=== PATIENT | female | born 1940 | race African-American/Black ===

== ENCOUNTER 2017-11-06 10:13 | Inpatient (IN) | payer MEDICARE, BC ==
[~2017-11-06] VITALS: Ht 165.1 cm; Wt 87.1 kg
[2017-11-06] MEDS ORDERED: ADENOSINE 3 MG/ML 2ML VIAL IV ONE ×3 (10:30→10:37)
[2017-11-06 11:16] LABS: BASOPHILS % 0.2 % (0.0-2.0); EOSINOPHILS % 0.2 % (0.0-5.0); HEMATOCRIT. 38.2 % (36.0-48.0); HEMOGLOBIN. 12.2 g/dL (12.0-16.0); LYMPHOCYTES % 14.5 % (20.0-50.0); MEAN CORPUSCULAR HEMOGLOBIN 27.1 pg (28.0-32.0); MEAN CORPUSCULAR VOLUME 84.7 fL (81.0-99.0); MEAN PLATELET VOLUME 8.5 fl (7.4-10.4); MONOCYTES % 8.2 % (2.0-8.0); NEUTROPHILS % 76.9 % (40.0-76.0); PLATELET 262 x1000/uL (130-400); RED BLOOD CELL COUNT 4.52 mill/uL (4.2-5.4); RED CELL DISTRIBUTION WIDTH 14.7 % (11.6-14.6)
[2017-11-06 11:19] LABS: CHLORIDE 100 mEq/L (98-107); INR 1.3; PROTHROMBIN TIME 13.7 sec (9.4-11.6)
[2017-11-06] MEDS ORDERED: SODIUM CHLORIDE 0.9% 1,000 ML IV ONE (11:21)
[2017-11-06] MEDS ORDERED: VANCOMYCIN 1 G PREMIX 200 ML IV ONE (11:45)
[2017-11-06] MEDS ORDERED: SODIUM CHLORIDE 0.9% 1000ML BAG (SEPSIS BOLUS) IV ONE (11:45)
[2017-11-06] MEDS ORDERED: PIPERACILLIN/TAZ 3.375G PREMIX 50 ML IV ONE (11:45)
[2017-11-06 12:27] LABS: CLARITY URINE CLOUDY (CLEAR); COLOR URINE DARK YELLOW (YELLOW); KETONES URINE NEGATIVE (NEGATIVE); LEUKOCYTE ESTERASE URINE TRACE (NEGATIVE); NITRITE URINE NEGATIVE (NEGATIVE); OCCULT BLOOD URINE 2+ (NEGATIVE); PROTEIN URINE 1+ (NEGATIVE); SPECIFIC GRAVITY URINE 1.021 (1.005-1.030)
[2017-11-06] MEDS ORDERED: POTASSIUM CHLORIDE 20MEQ TABLET SR PO NR (14:30)
[2017-11-06 16:00] VITALS: BP 99/67
[2017-11-06] MEDS ORDERED: CLONIDINE 0.1MG TABLET PO PRN (16:00)
[2017-11-06] MEDS ORDERED: CLOPIDOGREL 75MG TABLET PO SCH (16:00)
[2017-11-06] MEDS: METOPROLOL TARTRATE 25MG TABLET PO SCH (16:00)
[2017-11-06] MEDS ORDERED: ASPIRIN 81MG EC TABLET PO SCH (16:00)
[2017-11-06] MEDS ORDERED: ASPI-1159 MT (17:07)
[2017-11-06] MEDS ORDERED: POTA8TAB4 MT (17:07)
[2017-11-06] MEDS ORDERED: FERR325T6 MT (17:07)
[2017-11-06 17:13] VITALS: BP 99/67
[2017-11-06] MEDS ORDERED: ENOXAPARIN 30MG/0.3ML SYR SUBCUT SCH (18:00)
[2017-11-06] MEDS: DEXT 5%/0.45% NACL 1000ML 1,000 ML IV SCH (18:15)
[2017-11-06 18:27] LABS: CLARITY URINE CLOUDY (CLEAR); COLOR URINE DARK YELLOW (YELLOW); KETONES URINE NEGATIVE (NEGATIVE); LEUKOCYTE ESTERASE URINE NEGATIVE (NEGATIVE); NITRITE URINE NEGATIVE (NEGATIVE); OCCULT BLOOD URINE 2+ (NEGATIVE); PROTEIN URINE TRACE (NEGATIVE); SPECIFIC GRAVITY URINE 1.021 (1.005-1.030)
[2017-11-06] MEDS: GUAIFENESIN 200MG TABLET PO SCH (18:30)
[2017-11-06] MEDS: FERROUS SULFATE 325MG TABLET PO SCH (18:30)
[2017-11-06 18:47] LABS: *BARBITURATES SCREEN URINE NEGATIVE (NEGATIVE)
[2017-11-06 18:48] LABS: *AMPHETAMINES SCREEN URINE NEGATIVE (NEGATIVE); *BENZODIAZEPINES SCREEN URINE NEGATIVE (NEGATIVE); *COCAINE SCREEN URINE NEGATIVE (NEGATIVE); METHADONE URINE SCREEN NEGATIVE (NEGATIVE); OPIATES URINE SCREEN NEGATIVE (NEGATIVE); PHENCYCLIDINE URINE SCREEN NEGATIVE (NEGATIVE)
[2017-11-06 19:00] LABS: CANNABINOID URINE SCREEN NEGATIVE (NEGATIVE)
[2017-11-06 20:00] VITALS: BP 101/64
[2017-11-06 22:00] VITALS: BP 110/66
[2017-11-07] VITALS (12 sets, daily range): BP systolic 98–134; BP diastolic 63–82
[2017-11-07] MEDS: DEXAMETHASONE 4MG/ML 1ML VIAL IV SCH ×4 (00:52→18:11)
[2017-11-07] MEDS: METOPROLOL TARTRATE 25MG TABLET PO SCH ×3 (09:00→21:23)
[2017-11-07] MEDS: FERROUS SULFATE 325MG TABLET PO SCH ×2 (09:00→17:00)
[2017-11-07] MEDS: GUAIFENESIN 200MG TABLET PO SCH ×2 (09:00→17:00)
[2017-11-07 09:04] LABS: BASOPHILS % 0.1 % (0.0-2.0); EOSINOPHILS % 0.1 % (0.0-5.0); HEMATOCRIT. 31.6 % (36.0-48.0); HEMOGLOBIN. 10.3 g/dL (12.0-16.0); LYMPHOCYTES % 7.6 % (20.0-50.0); MEAN CORPUSCULAR HEMOGLOBIN 27.6 pg (28.0-32.0); MEAN CORPUSCULAR VOLUME 84.6 fL (81.0-99.0); MEAN PLATELET VOLUME 8.7 fl (7.4-10.4); MONOCYTES % 7.7 % (2.0-8.0); NEUTROPHILS % 84.5 % (40.0-76.0); PLATELET 187 x1000/uL (130-400); RED BLOOD CELL COUNT 3.74 mill/uL (4.2-5.4); RED CELL DISTRIBUTION WIDTH 14.6 % (11.6-14.6)
[2017-11-07 10:35] LABS: CHLORIDE 108 mEq/L (98-107)
[2017-11-07 10:46] LABS: AMMONIA 50 uMol/L (<32)
[2017-11-07 11:04] LABS: CREATINE KINASE MB FRACTION 6.3 ng/mL (0.5-3.6)
[2017-11-07] MEDS: DEXT 5%/0.45% NACL 1000ML 1,000 ML IV SCH (11:12)
[2017-11-07 11:17] LABS: CREATINE KINASE 1354 IU/L (26-192)
[2017-11-07] MEDS: ENOXAPARIN 40MG/0.4ML SYR SUBCUT SCH (18:12)
[2017-11-07] MEDS ORDERED: IPRATROPIUM/ALBUTEROL 0.5-3(2.5)MG/3ML NEB HHN PRN (21:15)
[2017-11-07] MEDS: IPRATROPIUM/ALBUTEROL 0.5-3(2.5)MG/3ML NEB HHN SCH (23:56)
[2017-11-08] VITALS (11 sets, daily range): BP systolic 109–133; BP diastolic 68–83
[2017-11-08] MEDS: DEXAMETHASONE 4MG/ML 1ML VIAL IV SCH ×4 (01:00→17:31)
[2017-11-08] MEDS: IPRATROPIUM/ALBUTEROL 0.5-3(2.5)MG/3ML NEB HHN SCH ×5 (03:57→21:47)
[2017-11-08] MEDS: DEXT 5%/0.45% NACL 1000ML 1,000 ML IV SCH ×2 (04:08→22:07)
[2017-11-08 06:30] LABS: HEMATOCRIT. 32.6 % (36.0-48.0); HEMOGLOBIN. 10.5 g/dL (12.0-16.0); LYMPHOCYTES % 12.6 % (20.0-50.0); MEAN CORPUSCULAR HEMOGLOBIN 27.2 pg (28.0-32.0); MEAN CORPUSCULAR VOLUME 85.1 fL (81.0-99.0); MEAN PLATELET VOLUME 8.6 fl (7.4-10.4); MONOCYTES % 4.6 % (2.0-8.0); NEUTROPHILS % 82.8 % (40.0-76.0); PLATELET 201 x1000/uL (130-400); RED BLOOD CELL COUNT 3.84 mill/uL (4.2-5.4); RED CELL DISTRIBUTION WIDTH 14.8 % (11.6-14.6)
[2017-11-08 06:50] LABS: CHLORIDE 108 mEq/L (98-107)
[2017-11-08] MEDS: METOPROLOL TARTRATE 25MG TABLET PO SCH ×2 (09:35→22:06)
[2017-11-08] MEDS: GUAIFENESIN 200MG TABLET PO SCH ×2 (09:36→17:31)
[2017-11-08] MEDS: FERROUS SULFATE 325MG TABLET PO SCH ×2 (09:36→17:31)
[2017-11-08] MEDS ORDERED: ASPIRIN 325MG EC TABLET PO SCH (12:00)
[2017-11-08] MEDS ORDERED: GADOBENATE DIMEGLUMINE 529 MG/ML 10ML IV ONE (12:08)
[2017-11-08] MEDS: ENOXAPARIN 40MG/0.4ML SYR SUBCUT SCH (17:32)
[2017-11-08] MEDS: ATORVASTATIN CALCIUM 10MG TABLET PO SCH (22:06)
[2017-11-09] VITALS (14 sets, daily range): BP systolic 112–135; BP diastolic 58–82
[2017-11-09] MEDS: IPRATROPIUM/ALBUTEROL 0.5-3(2.5)MG/3ML NEB HHN SCH ×6 (01:35→21:24)
[2017-11-09] MEDS: DEXAMETHASONE 4MG/ML 1ML VIAL IV SCH ×4 (06:40→18:02)
[2017-11-09 07:19] LABS: BASOPHILS % 0.1 % (0.0-2.0); HEMATOCRIT. 31.2 % (36.0-48.0); HEMOGLOBIN. 10.1 g/dL (12.0-16.0); LYMPHOCYTES % 8.6 % (20.0-50.0); MEAN CORPUSCULAR HEMOGLOBIN 27.8 pg (28.0-32.0); MEAN CORPUSCULAR VOLUME 85.7 fL (81.0-99.0); MEAN PLATELET VOLUME 8.3 fl (7.4-10.4); MONOCYTES % 10.5 % (2.0-8.0); NEUTROPHILS % 80.8 % (40.0-76.0); PLATELET 217 x1000/uL (130-400); RED BLOOD CELL COUNT 3.64 mill/uL (4.2-5.4)
[2017-11-09 07:39] LABS: CHLORIDE 111 mEq/L (98-107)
[2017-11-09] MEDS: GUAIFENESIN 200MG TABLET PO SCH ×2 (09:00→18:01)
[2017-11-09] MEDS: FERROUS SULFATE 325MG TABLET PO SCH ×2 (10:26→17:51)
[2017-11-09] MEDS: METOPROLOL TARTRATE 25MG TABLET PO SCH ×3 (10:26→21:00)
[2017-11-09] MEDS: DEXT 5%/0.45% NACL 1000ML 1,000 ML IV SCH (12:55)
[2017-11-09] MEDS ORDERED: SODIUM BICARBONATE 4% (2.4MEQ) 5ML VIAL IV ONE (13:56)
[2017-11-09] MEDS ORDERED: LIDOCAINE HCL 1% 20ML VIAL (Pyxis) INJ ONE (13:56)
[2017-11-09] MEDS: ATORVASTATIN CALCIUM 10MG TABLET PO SCH ×2 (20:28→21:00)
[2017-11-10] VITALS (16 sets, daily range): BP systolic 118–160; BP diastolic 65–84
[2017-11-10] MEDS: DEXAMETHASONE 4MG/ML 1ML VIAL IV SCH ×4 (00:22→16:09)
[2017-11-10] MEDS: ATORVASTATIN CALCIUM 10MG TABLET PO SCH ×2 (00:38→22:06)
[2017-11-10] MEDS: METOPROLOL TARTRATE 25MG TABLET PO SCH ×3 (00:39→22:07)
[2017-11-10] MEDS: IPRATROPIUM/ALBUTEROL 0.5-3(2.5)MG/3ML NEB HHN SCH ×6 (00:53→20:16)
[2017-11-10] MEDS: DEXT 5%/0.45% NACL 1000ML 1,000 ML IV SCH ×2 (05:52→22:15)
[2017-11-10] MEDS: FERROUS SULFATE 325MG TABLET PO SCH ×2 (09:18→16:09)
[2017-11-10] MEDS: GUAIFENESIN 200MG TABLET PO SCH ×2 (09:22→16:09)
[2017-11-11] VITALS (7 sets, daily range): BP systolic 115–156; BP diastolic 65–91
[2017-11-11] MEDS: IPRATROPIUM/ALBUTEROL 0.5-3(2.5)MG/3ML NEB HHN SCH ×3 (00:18→09:06)
[2017-11-11] MEDS: DEXAMETHASONE 4MG/ML 1ML VIAL IV SCH ×3 (00:57→12:00)
[2017-11-11] MEDS: GUAIFENESIN 200MG TABLET PO SCH (09:34)
[2017-11-11] MEDS: FERROUS SULFATE 325MG TABLET PO SCH (09:34)
[2017-11-11] MEDS: METOPROLOL TARTRATE 25MG TABLET PO SCH (09:34)
== END 2017-11-11 12:45 | disposition home or self-care (01) | DRG 40 ==
LOC: ER 10:21 → 8WST 13:55 → EDBEDREQ 14:00 → ENRESERV 14:30 → 5EST 21:00
PROVIDERS: ADMIT Internal Medicine; ATTEND Internal Medicine
PROC: 079 Lymphatic and Hemic Systems, Drainage (ICD-10-PCS; principal; 2017-11-09)
DX: I63.9 Cerebral infarction, unspecified (principal); G93.40 Encephalopathy, unspecified; I47.1 Supraventricular tachycardia; N17.9 Acute kidney failure, unspecified; E46 Unspecified protein-calorie malnutrition; E87.2 Acidosis; C79.31 Secondary malignant neoplasm of brain; Z95.5 Presence of coronary angioplasty implant and graft; I25.10 Atherosclerotic heart disease of native coronary artery without angina pectoris; C50.919 Malignant neoplasm of unspecified site of unspecified female breast; D64.9 Anemia, unspecified; D72.829 Elevated white blood cell count, unspecified; E66.9 Obesity, unspecified; R59.1 Generalized enlarged lymph nodes; E78.00 Pure hypercholesterolemia, unspecified; E78.5 Hyperlipidemia, unspecified; E86.0 Dehydration; I11.9 Hypertensive heart disease without heart failure; M19.90 Unspecified osteoarthritis, unspecified site; I95.9 Hypotension, unspecified; I25.2 Old myocardial infarction; Z79.899 Other long term (current) drug therapy; Z86.711 Personal history of pulmonary embolism; Z68.32 Body mass index [BMI] 32.0-32.9, adult; Z79.82 Long term (current) use of aspirin; Z88.1 Allergy status to other antibiotic agents; Z92.21 Personal history of antineoplastic chemotherapy; Z92.3 Personal history of irradiation
CPT/HCPCS: 36415; 70450; 70544; 70553; 71045; 76942; 80048; 80053; 80305; 81003; 82140; 82550; 82553; 82962; 83605; 83735; 83880; 84443; 84484; 85025; 85379; 85610; 85651; 86850; 86900; 87040; 87086; 88172; 88173; 93005; 93306; 93880; 96365; 96367; 96375; 97162; 97166; 97530; 99291; A6261; A9577; J0153; J1100; J1650; J2543; J3370; J3490; J7030; J7620; A4315